=== PATIENT | female | born 1990 | race Caucasian/White ===

== ENCOUNTER 2019-04-08 17:28 | Emergency (ER) | payer OTHER ==
[2019-04-08 17:48] VITALS: BP 130/81
--- NOTE | 2019-04-08 18:28 | UC ---
UC General HPI - HPI Summary HPI Summary: Pleasant 28 yo female presents with significant other, with c/o lower abdominal pressure since Thursday. Seen by hip hop performers at [facility], who advised her that sx are related to current stage of in the setting of prior nonpregnancy related gynecological problem (ex fibroid). Notes some dysuria. No hematuria, no vag bleeding, feels baby moving. Will see hip hop performers early this upcoming week for f/u. No fever / chills. No unusual ctx. No sob / cp / rash. Concerned that she could have a uti, and didn't want to wait out the weekend with a potential uti untx'd. - History of Current Complaint Chief Complaint: [facility] Stated Complaint: WITH ABDOMINAL PRESSURE Time Seen by Provider: 04/08/19 18:27 Hx Obtained From: Patient Pain Intensity: 3 - Allergy/Home Medications Allergies/Adverse Reactions: Allergies Allergy/AdvReac Type Severity Reaction Status Date / Time No Known Allergies Allergy Verified 04/08/19 17:48 Home Medications: Home Medications [id number]/Iron Fum/Folic/Docusate [ 19] 1 tab PO DAILY WITH MEAL 04/08/19 [ History Confirmed 04/08/19] PMH/Surg Hx/FS Hx/Imm Hx Previously Healthy: Yes - Surgical History Surgical History: None - Family History Known Family History: Positive: None - Social History Alcohol Use: None Substance Use Type: None Smoking Status (MU): Never Smoked Tobacco Review of Systems All Other Systems Reviewed And Are Negative: Yes Constitutional: Positive: Negative Skin: Positive: Negative Eyes: Positive: Negative ENT: Positive: Negative Respiratory: Positive: Negative Cardiovascular: Positive: Negative Gastrointestinal: Positive: Other - see hpi no new n/v. No d/c. Genitourinary: Positive: Other - see hpi Motor: Positive: Negative Neurovascular: Positive: Negative Musculoskeletal: Positive: Negative Neurological: Positive: Negative Psychological: Positive: Negative Is Patient Immunocompromised?: No Physical Exam Triage Information Reviewed: Yes Appearance: Well-Appearing, Well-Nourished Vital Signs: Initial Vital Signs Temp 99.1 F 04/08/19 17:44 Pulse 69 04/08/19 17:44 Resp 04/08/19 17:44 BP 130/81 04/08/19 17:44 Pulse Ox 100 04/08/19 17:44 Vital Signs Reviewed: Yes Eye Exam: Normal ENT Exam: Normal Neck exam: Normal Neck: Positive: Supple, Nontender Respiratory Exam: Normal Respiratory: Positive: Chest non-tender, Lungs clear, Normal breath sounds, No respiratory distress, No accessory muscle use Cardiovascular Exam: Normal Cardiovascular: Positive: RRR, No Murmur, Pulses Normal, Brisk Capillary Refill Abdominal Exam: Other - gravid uterus c/w dates + bs. Not kev at this time. Mild tender RL and suprapubic region. + general not lateralized low back tenderness. FHT's by doppler approx 148 - 158 Bowel Sounds: Positive: Present Pelvic Exam: Positive: Other - pelvic exam not performed. see abd exam. Musculoskeletal Exam: Normal Musculoskeletal: Positive: Strength Intact, ROM Intact Neurological Exam: Normal - grossly nonfocal Psychological Exam: Normal Psychological: Positive: Normal Response To Family - conversing easily and appropriately. nad. Skin Exam: Normal - no visible or reported rash. nondiaphoretic. Course/Dx - Course Course Of Treatment: Urine dip noted. Benign. Cx sent. D/w pt and community engagement representative coa / tx plan. Diff dx is extensive. Pt is planning to f/u with obgyn associates early this week, she reports that she was mostly concerned about being checked for a uti, and agrees with hip hop performers the discomfort is likely related to anatomical changes at this stage. I reviewed that there are other issues in the differential, including albeit not limited to appendicitiis, renal issue, etc. However, she does not want to go to the ED for furhter eval at this time, citing that the pain has waxed and waned rather than steadily increasing. She reports that she will go to the ED immediately however, if any worse or new problems or if pain doesn't get better. Questions as posed answered to the best of my ability. - Diagnoses Provider Diagnosis: , Abdominal pain affecting Discharge ED - Sign-Out/Discharge Documenting (check all that apply): Patient Departure All imaging exams completed and their final reports reviewed: No Studies - Discharge Plan Condition: Stable Disposition: HOME Patient Education Materials: at 23 to 26 Weeks (ED) Referrals: Jeannie Jauregui MD [Primary Care Provider] - Additional Instructions: Minimize exertion the next few days. Continue to hydrate. Please go to the Emergency Department if ANY worse or new problems, or if pain does not relent, or if you start bleeding, or have a fever. Call your OBGyn MD / Staff Interpreter on Thursday to schedule follow up for early this week. Urine culture has been sent. - Billing Disposition and Condition Condition: STABLE Disposition: Home
--- NOTE | 2019-04-11 15:44 | UC ---
- Progress Note Progress Note: No growth on urine culture. Please let her know (pregnanct and was having cramping). Ensure follows up with OB if still having a lot of cramping. Course/Dx - Course Course Of Treatment: reassurance - Diagnoses Provider Diagnoses: Is Visit Related: Yes Discharge ED - Sign-Out/Discharge Documenting (check all that apply): Patient Departure All imaging exams completed and their final reports reviewed: No Studies - Discharge Plan Condition: Stable Disposition: HOME Patient Education Materials: at 23 to 26 Weeks (ED) Referrals: Jeannie Jauregui MD [Primary Care Provider] - Additional Instructions: Minimize exertion the next few days. Continue to hydrate. Please go to the Emergency Department if ANY worse or new problems, or if pain does not relent, or if you start bleeding, or have a fever. Call your OBGyn MD / Market Research Intern on Thursday to schedule follow up for early this week. Urine culture has been sent. - Billing Disposition and Condition Condition: STABLE Disposition: Home
== END 2019-04-08 19:14 | disposition home or self-care (01) ==
LOC: UCEAST 17:28
DX: O26.899 Other specified pregnancy related conditions, unspecified trimester (principal); R10.30 Lower abdominal pain, unspecified; R30.0 Dysuria; Z3A.00 Weeks of gestation of pregnancy not specified
CPT/HCPCS: 81003; 87086; 99211; G0463

== ENCOUNTER 2019-07-23 16:56 | Inpatient (IN) | payer OTHER ==
[2019-07-23] MEDS ORDERED: Lactated Ringers 1000 ML Bag* 1,000 ML IV ONE (17:48)
[2019-07-23] MEDS ORDERED: Buffered Lidocaine 1% SYRIN* 1 ML/SYRINGE INTRADERM ONE (17:48)
--- NOTE | 2019-07-23 17:54 | HP ---
General Information - Reason for Visit leaking fluid - General Information Maternal Age: 28 Grav: 1 Para: 0 SAB: 0 IEA: 0 Estimated Due Date: 07/23/19 Determined By: Early Ultrasound Maternal Blood Type and Rh: O Positive - Results this Serology/RPR Result: Non-Reactive Rubella Result: Immune HBsAg Result: Negative HIV Result: Negative GBS Culture Result: Negative Past Medical History Delivery History: See Records Pertinent Past Medical History: See Records Pertinent Past Surgical History: See Records Pertinent Family History: See Records - Antepartal Records Antepartal Records: Reviewed, Complicated by: - large anterior fibroid Review of Systems Constitutional: Comfortable CV Complaint: No Respiratory: Shortness of Breath: No Gastrointestinal: No Nausea/Vomiting Genitourinary: Leaking Fluid, No Dysuria Musculoskeletal: No Complaint Neurological: No Headache Movement: Normal Exam Allergies/Adverse Reactions: Allergies No Known Allergies Allergy (Verified 04/08/19 17:48) P: 136/84 P : 83 T: 97.9 - Measurements Height: 5 ft 6 in Weight: 215 lb Weight in lbs: [phone] Body Mass Index (BMI): 34.7 Pre- Weight: 165 lb Weight Gained This : 50 lbs and 0 ozs - Exam Breast: Breast Exam Deferred CVA: No CVA Tenderness Extremities: No Edema Heart: Normal Rhythm/Heart Sounds HEENT: No Significant Findings Lungs: Clear Bilaterally Rectal: Rectal Exam Deferred Reflexes: DTR 2+ Thyroid: No Thyromegaly - Abdominal Exam Abdomen Exam: Non-Tender - Ultrasound/Biophysical Profile Ultrasound Status: Not Done Targeted Exam Findings Cervical Exam: 2cm Effacement: 80% Station: 0 Presenting Part: Vertex Membrane Status: Leaking Amniotic Fluid Evaluation: Gross Rupture EFM Findings - External Monitor Findings Baseline Heart Rate: 140 External Monitor Findings: Accelerations Present, No Pattern of Variable or Late Decelerations, Variability Moderate, Baseline Stable Contractions: Irregular Assessment/Plan - Assessment Pt 28 yo at 40 weeks with SROM at 9:15 Am. Pt with lower anterior fibroid 7CM. Pt comes in for augmentation of labor - Plan Plan: Induction, Admit - Anticipate Vaginal Delivery
[2019-07-23] MEDS ORDERED: Lactated Ringers 1000 ML Bag* 1,000 ML IV SCH (18:00)
[2019-07-23] MEDS ORDERED: Oxytocin in LR* 20 UNITS/1,000 ML BAG IVPB SCH (18:00)
[2019-07-23 18:32] LABS: ABS Basophils 0.1 10^3/ul (0-0.2); ABS Eosinophils 0.1 10^3/ul (0-0.6); ABS Lymphocytes 1.8 10^3/ul (1.0-4.8); ABS Neutrophils 10.3 10^3/ul (1.5-7.7); Eosinophil % 0.9 %; Hematocrit 34 % (35-47); Hemoglobin 11.5 g/dL (12.0-16.0); Lymphocyte % 13.8 %; Mean Corpuscular HGB Conc 33 g/dL (31-36); Mean Corpuscular Hemoglobin 27 pg (27-31); Mean Corpuscular Volume 81 fL (80-97); Mean Platelet Volume 8.8 fL (7.4-10.4); Platelet Count 251 10^3/uL (150-450); Red Blood Count 4.24 10^6 /uL (3.70-4.87); Red Cell Distribution Width 15 % (10-15); White Blood Count 13.3 10^3/uL (3.5-10.8)
[2019-07-23 18:55] LABS: Urine Benzodiazepine Screen None Detected (None Detect); Urine Opiates Screen None Detected (None Detect)
[2019-07-24] MEDS ORDERED: Bupivacaine 0.25% SDV PF* 10 ML VIAL INJ ONE (00:14)
[2019-07-24] MEDS ORDERED: OBEPIDURAL* 250 ML EPIDURAL ONE (00:16)
[2019-07-24] MEDS ORDERED: Famotidine TAB* 20 MG PO PRN (00:40)
[2019-07-24] MEDS ORDERED: Lactated Ringers 1000 ML Bag* 1,000 ML IV ONE (00:40)
[2019-07-24] MEDS ORDERED: Sodium Citrate/Citric Acid* 15 ML UDC PO PRN (00:40)
[2019-07-24] MEDS ORDERED: EPHEDrine (Pressors)* 50 MG/ML VIAL IV PUSH PRN (00:40)
[2019-07-24] MEDS ORDERED: OBEPIDURAL* 250 ML EPIDURAL SCH (01:00)
[2019-07-24] MEDS ORDERED: Lactated Ringers 1000 ML Bag* 1,000 ML IV SCH ×2 (01:00→10:00)
[2019-07-24] MEDS: Phenylephrine 40 MCG/ML SYRINGE IV PUSH PRN ×3 (01:06→01:27)
[2019-07-24] MEDS ORDERED: Glycerin ADULT SUPP PR PRN (09:20)
[2019-07-24] MEDS ORDERED: Witch Hazel PAD* JAR TOPICAL PRN (09:20)
[2019-07-24] MEDS ORDERED: Misoprostol TAB* 200 MCG PR ONE (09:20)
--- NOTE | 2019-07-24 09:31 | PROCNOTE ---
[facility] OB: Delivery Note - Delivery A Date of : 07/24/19 Time of : 08:30 [place] Sex: Female Weight at : 0 oz Score 1 Minute: 9 Score 5 Minutes: 9 Gestational Age in Weeks and Days at Delivery: 40 Weeks and 1 Days Delivery Method: Spontaneous Vaginal Labor: Spontaneous - placenta 3VC/ spontaneous/intact Did Patient attempt ?: N/A, No Previous Amniotic Fluid: Clear Estimated Blood Loss: 350 Anesthesia/Analgesia: CEI for Labor Delivered By: Naz Robins - Nursery Level of Nursery: Regular/Bedside - Perineum Perineal Injury: Perineal Laceration - 2nd degree repaired/ periurethral abrasion/not reparied Perineal Injury Comment: repaired standard fashion with 2.0 vicryl X 2 Perineal Repair: By Delivering Practioner - Events Delivery Events of Note: Pitocin During Labor
[2019-07-24] MEDS ORDERED: Oxytocin in LR* 20 UNITS/1,000 ML BAG IVPB SCH (10:00)
[2019-07-24] MEDS: Ibuprofen TAB* 600 MG PO PRN ×3 (11:28→23:43)
[2019-07-24] MEDS ORDERED: Lidocaine 1% INJ* 10 MG/ML 30 ML SDV ONE (12:24)
[2019-07-24] MEDS ORDERED: Simethicone TAB* 80 MG TAB.CHEW PO SCH (12:30)
[2019-07-24] MEDS: Docusate CAP* 100 MG PO SCH ×2 (17:12→20:11)
[2019-07-24] MEDS: Dibucaine 1% 28.35 GM TUBE PR PRN (17:12)
[2019-07-24] MEDS: Acetaminophen TAB* 325 MG PO PRN (20:11)
[2019-07-25] MEDS: Ibuprofen TAB* 600 MG PO PRN ×3 (05:57→21:17)
[2019-07-25 06:10] LABS: ABS Basophils 0.1 10^3/ul (0-0.2); ABS Eosinophils 0.2 10^3/ul (0-0.6); ABS Lymphocytes 2.1 10^3/ul (1.0-4.8); ABS Monocytes 1.2 10^3/ul (0-0.8); ABS Neutrophils 11.4 10^3/ul (1.5-7.7); Eosinophil % 1.2 %; Hematocrit 24 % (35-47); Hemoglobin 7.9 g/dL (12.0-16.0); Lymphocyte % 13.9 %; Mean Corpuscular HGB Conc 34 g/dL (31-36); Mean Corpuscular Hemoglobin 27 pg (27-31); Mean Corpuscular Volume 81 fL (80-97); Mean Platelet Volume 8.3 fL (7.4-10.4); Platelet Count 195 10^3/uL (150-450); Red Blood Count 2.92 10^6 /uL (3.70-4.87); Red Cell Distribution Width 15 % (10-15)
[2019-07-25] MEDS: Docusate CAP* 100 MG PO SCH ×3 (08:18→21:17)
[2019-07-25] MEDS: Ferrous Gluconate TAB* 324 MG TAB PO SCH ×2 (08:18→21:17)
[2019-07-25] MEDS: Acetaminophen TAB* 325 MG PO PRN (08:18)
[2019-07-26] MEDS: Ibuprofen TAB* 600 MG PO PRN ×2 (03:49→11:08)
[2019-07-26] MEDS: Docusate CAP* 100 MG PO SCH (07:52)
[2019-07-26] MEDS: Ferrous Gluconate TAB* 324 MG TAB PO SCH (07:52)
[2019-07-26] MEDS: Dibucaine 1% 28.35 GM TUBE PR PRN ×2 (07:52→11:08)
[2019-07-26 08:02] VITALS: BP 122/74
[2019-07-26 08:37] LABS: ABS Basophils 0.1 10^3/ul (0-0.2); ABS Eosinophils 0.4 10^3/ul (0-0.6); ABS Lymphocytes 1.7 10^3/ul (1.0-4.8); ABS Monocytes 0.7 10^3/ul (0-0.8); ABS Neutrophils 8.7 10^3/ul (1.5-7.7); Eosinophil % 3.2 %; Hematocrit 26 % (35-47); Lymphocyte % 14.6 %; Mean Corpuscular HGB Conc 35 g/dL (31-36); Mean Corpuscular Hemoglobin 28 pg (27-31); Mean Corpuscular Volume 81 fL (80-97); Mean Platelet Volume 7.8 fL (7.4-10.4); Platelet Count 224 10^3/uL (150-450); Red Cell Distribution Width 15 % (10-15); White Blood Count 11.5 10^3/uL (3.5-10.8)
== END 2019-07-26 14:35 | disposition home or self-care (01) | DRG 807 ==
LOC: MCHOBOUT 16:56 → MCHOB 17:42
PROVIDERS: ADMIT Obstetrics & Gynecology; ATTEND Obstetrics & Gynecology
PROC: 10E0XZZ Delivery of Products of Conception, External Approach (ICD-10-PCS; principal; 2019-07-24)
PROC: 0KQM0ZZ Repair Perineum Muscle, Open Approach (ICD-10-PCS; 2019-07-24)
DX: O34.10 Maternal care for benign tumor of corpus uteri, unspecified trimester (principal); Z37.0 Single live birth; D25.9 Leiomyoma of uterus, unspecified; O48.0 Post-term pregnancy; O70.1 Second degree perineal laceration during delivery; O71.82 Other specified trauma to perineum and vulva; O90.81 Anemia of the puerperium; D64.9 Anemia, unspecified; Z3A.40 40 weeks gestation of pregnancy
CPT/HCPCS: 36415; 80307; 85025; 86850; 86900; 86901; A9270-GY; J3490